=== PATIENT | male | born 2000 | race Caucasian/White ===

== ENCOUNTER 2020-11-20 10:06 | Inpatient (IN) | payer BC ==
[~2020-11-20 10:06] MED LIST: Iopamidol-370 76% 500 ML 1 ML ONE
[2020-11-20] MEDS ORDERED: Cefepime 2 GM VIAL ONE (11:00)
[2020-11-20] MEDS ORDERED: Morphine 4 MG/ML VIAL ONE ×3 (11:00→18:23)
[2020-11-20] MEDS ORDERED: Ketorolac Tromethamine 30 MG/ML VIAL ONE (11:00)
[2020-11-20] MEDS ORDERED: Ondansetron PF 4 MG/2 ML Vial ONE (11:00)
[2020-11-20] MEDS ORDERED: Acetaminophen 500 MG TAB ONE (11:02)
[2020-11-20 11:17] LABS: #Lymphocytes 0.4 thou/uL (1.20-3.40); #Monocytes 0.6 thou/uL (0.11-0.59); #Neutrophils 9.4 thou/uL (1.40-6.50); %Basophils 0.1 % (0.0-1.0); %Eosinophils 0.1 % (0.0-10.0); %Monocytes 5.8 % (0.0-4.0); %Neutrophils 89.9 % (31.0-61.0); Hemoglobin 14.7 g/dL (14.0-18.0); Mean Corpuscular HGB CONC 35.2 g/dL (32.0-36.0); Mean Corpuscular Hemoglobin 32.9 pg (25.0-35.0); Mean Corpuscular Volume 93.4 fL (78.0-98.0); Mean Platelet Volume 7.3 fL (7.4-10.4); Platelet Count 197 thou/uL (130-400); RBC Distribution Width 11.2 % (11.5-14.5); Red Blood Cell (RBC) Count 4.48 mill/uL (4.00-5.20); White Blood Cell (WBC) Count 10.5 thou/uL (4.8-10.8)
[2020-11-20 11:39] LABS: ALT (SGPT) 10 U/L (8-55); AST (SGOT) 18 U/L (5-34); Albumin 4.3 g/dL (3.5-5.0); Alkaline Phosphatase 70 U/L (50-130); Anion Gap 13 mmol/L (10-20); BUN (Urea Nitrogen) 16 mg/dL (8.9-20.6); Bilirubin, Total 1.4 mg/dL (0.2-1.2); CK (CPK) 112 U/L (30-200); Calc. Creatinine Clearance 0 mL/min (70-130); Calcium 9.5 mg/dL (7.8-10.44); Carbon Dioxide 23 mmol/L (22-29); Chloride 104 mmol/L (98-107); Globulin 3.2 g/dL (2.4-3.5); Glucose 110 mg/dL (70-105); Lipase 24 U/L (8-78); Magnesium 1.4 mg/dL (1.7-2.2); Potassium 3.9 mmol/L (3.5-5.1); Protein, Total 7.5 g/dL (6.0-8.3); Sodium 136 mmol/L (136-145)
[2020-11-20 11:49] LABS: Bacteria/HPF None Seen HPF (None Seen); Bilirubin Negative (Negative); Blood, Urine Negative (Negative); Clarity Clear (Clear); Glucose, Urine (Dipstick) Normal (Negative); Ketone, Urine Negative (Negative); Leukocyte Negative Leu/uL (Negative); Nitrite Negative (Negative); Protein, Urine (Dipstick) 30 mg/dL (Neg-Trace); RBC/HPF 0-3 HPF (0-3); Specific Gravity, Urine 1.032 (1.002-1.036); Squamous Epithelial 0-3 HPF (0-3); Urobilinogen Normal mg/dL (Less than 2); WBC/HPF 0-3 HPF (0-3); pH, Urine 8.5 (5.0-9.0)
[2020-11-20] MEDS ORDERED: Vancomycin 1 GM/200 ML BAG ONE (13:16)
[2020-11-20] MEDS ORDERED: Magnesium 2 GM/50 ML BAG (IN WATER) ONE (15:05)
[2020-11-20] MEDS ORDERED: Ondansetron PF 4 MG/2 ML Vial IVP PRN (15:17)
[2020-11-20] MEDS ORDERED: Acetaminophen 325 MG TAB PO PRN (15:17)
[2020-11-20] MEDS ORDERED: Ondansetron ODT 4 MG TAB PO PRN (15:17)
[2020-11-20 15:22] LABS: SARS-CoV-2 NAA Rapid Test Not Detected (NotDetected)
[2020-11-20 20:27] VITALS: BMI 24.4
[2020-11-20] MEDS: Morphine 2 MG/ML VIAL SLOW IVP PRN (20:49)
[2020-11-20] MEDS: cefTRIAXone\\ROCEPHIN 1 GM in Sodium Chloride 0.9% 100 ML IVPB SCH (22:13)
[2020-11-20] MEDS: metroNIDAZOLE 500 MG in Premix Bag 1 BAG IVPB SCH (23:15)
[2020-11-21] MEDS: metroNIDAZOLE 500 MG in Premix Bag 1 BAG IVPB SCH ×3 (05:17→21:19)
[2020-11-21 05:26] LABS: #Lymphocytes 0.9 thou/uL (1.20-3.40); #Monocytes 0.5 thou/uL (0.11-0.59); #Neutrophils 4.3 thou/uL (1.40-6.50); %Basophils 0.5 % (0.0-1.0); %Eosinophils 0.7 % (0.0-10.0); %Lymphocytes 15.8 % (28.0-48.0); %Monocytes 8.4 % (0.0-4.0); %Neutrophils 74.7 % (31.0-61.0); Hemoglobin 12.5 g/dL (14.0-18.0); Mean Corpuscular HGB CONC 33.3 g/dL (32.0-36.0); Mean Corpuscular Hemoglobin 31.7 pg (25.0-35.0); Platelet Count 160 thou/uL (130-400); RBC Distribution Width 11.1 % (11.5-14.5); Red Blood Cell (RBC) Count 3.94 mill/uL (4.00-5.20); White Blood Cell (WBC) Count 5.8 thou/uL (4.8-10.8)
[2020-11-21 05:45] LABS: Anion Gap 7 mmol/L (10-20); BUN (Urea Nitrogen) 16 mg/dL (8.9-20.6); Calc. Creatinine Clearance 152 mL/min (70-130); Calcium 8.4 mg/dL (7.8-10.44); Carbon Dioxide 25 mmol/L (22-29); Chloride 106 mmol/L (98-107); Glucose 88 mg/dL (70-105); Potassium 3.8 mmol/L (3.5-5.1); Sodium 134 mmol/L (136-145)
[2020-11-21] MEDS ORDERED: Magnesium Sulfate 4 GM in Sodium Chloride 0.9% 250 ML 250 ML IVPB SCH (08:00)
[2020-11-21] MEDS: Morphine 2 MG/ML VIAL SLOW IVP PRN ×3 (08:32→22:37)
[2020-11-21] MEDS: Dicyclomine 10 MG CAP PO PRN ×2 (10:23→16:35)
[2020-11-21] MEDS ORDERED: GoLYTELY 4,000 ml Bottle PO SCH (18:15)
[2020-11-21] MEDS: cefTRIAXone\\ROCEPHIN 1 GM in Sodium Chloride 0.9% 100 ML IVPB SCH (21:19)
[2020-11-22] MEDS: metroNIDAZOLE 500 MG in Premix Bag 1 BAG IVPB SCH (05:20)
[2020-11-22 06:11] LABS: #Eosinphils 0.1 thou/uL (0.0-0.7); #Lymphocytes 1.4 thou/uL (1.20-3.40); #Monocytes 0.5 thou/uL (0.11-0.59); #Neutrophils 2.5 thou/uL (1.40-6.50); %Basophils 0.6 % (0.0-1.0); %Eosinophils 2.7 % (0.0-10.0); %Lymphocytes 31.8 % (28.0-48.0); %Monocytes 10.3 % (0.0-4.0); %Neutrophils 54.6 % (31.0-61.0); Hemoglobin 12.5 g/dL (14.0-18.0); Mean Corpuscular Hemoglobin 33.5 pg (25.0-35.0); Mean Corpuscular Volume 95.6 fL (78.0-98.0); Mean Platelet Volume 7.2 fL (7.4-10.4); Platelet Count 173 thou/uL (130-400); RBC Distribution Width 11.2 % (11.5-14.5); Red Blood Cell (RBC) Count 3.73 mill/uL (4.00-5.20); White Blood Cell (WBC) Count 4.5 thou/uL (4.8-10.8)
[2020-11-22 06:39] LABS: Anion Gap 10 mmol/L (10-20); BUN (Urea Nitrogen) 11 mg/dL (8.9-20.6); CRP (Inflammatory) 12.02 mg/dL (= or < 0.5); Calc. Creatinine Clearance 144 mL/min (70-130); Calcium 8.3 mg/dL (7.8-10.44); Carbon Dioxide 27 mmol/L (22-29); Chloride 107 mmol/L (98-107); Glucose 80 mg/dL (70-105); Potassium 3.9 mmol/L (3.5-5.1); Sodium 140 mmol/L (136-145)
[2020-11-22] MEDS ORDERED: PROPOFOL 200 MG/20 ML VIAL ONE (09:30)
[2020-11-22] MEDS ORDERED: Lidocaine 1% PF 5 ML VIAL ONE (09:30)
[2020-11-22] MEDS ORDERED: Meperidine HCl/PF 25 MG/ML VIAL SLOW IVP PRN (10:21)
[2020-11-22] MEDS ORDERED: Promethazine HCl 25 MG/ML VIAL IVPB PRN ×2 (10:21)
[2020-11-22] MEDS ORDERED: Promethazine HCl 25 MG/ML VIAL IM PRN ×2 (10:21)
[2020-11-22] MEDS ORDERED: Ondansetron HCl/PF 4 MG/2 ML Vial IVP PRN ×2 (10:21)
[2020-11-22] MEDS ORDERED: Ketorolac Tromethamine 30 MG/ML VIAL IVP PRN (10:21)
[2020-11-22] MEDS: Morphine 2 MG/ML VIAL SLOW IVP PRN (11:29)
[2020-11-22] MEDS ORDERED: Promethazine HCl 12.5 MG in Sodium Chloride 0.9% 50 ML IVPB PRN (12:53)
[2020-11-22] MEDS ORDERED: HYDROcodone/Acetaminophen 5/325 mg Tablet PO PRN (12:53)
[2020-11-22] MEDS ORDERED: Hyoscyamine Sulfate SL 0.125 mg Tablet SL PRN (13:49)
[2020-11-22] MEDS: Hyoscyamine Sulfate SL 0.125 mg Tablet SL PRN ×2 (13:54→17:42)
[2020-11-22 16:09] VITALS: BP 104/59; TEMP 98.3
[2020-11-22] MEDS: Dicyclomine 10 MG CAP PO SCH ×2 (17:08→17:41)
== END 2020-11-22 18:00 | disposition home or self-care (01) | DRG 871 ==
LOC: ERS 10:06 → ERHOLD 12:42 → SJJU 19:57
PROVIDERS: ADMIT Internal Medicine; ATTEND Family Medicine
PROC: 0DBG8ZX Excision of Left Large Intestine, Via Natural or Artificial Opening Endoscopic, Diagnostic (ICD-10-PCS; principal; 2020-11-22)
PROC: 0DB78ZX Excision of Stomach, Pylorus, Via Natural or Artificial Opening Endoscopic, Diagnostic (ICD-10-PCS; 2020-11-22)
PROC: 0DBC8ZX Excision of Ileocecal Valve, Via Natural or Artificial Opening Endoscopic, Diagnostic (ICD-10-PCS; 2020-11-22)
DX: A41.9 Sepsis, unspecified organism (principal); K55.039 Acute (reversible) ischemia of large intestine, extent unspecified; Z20.822 Contact with and (suspected) exposure to COVID-19; K29.60 Other gastritis without bleeding; F17.210 Nicotine dependence, cigarettes, uncomplicated; K26.9 Duodenal ulcer, unspecified as acute or chronic, without hemorrhage or perforation; Z79.899 Other long term (current) drug therapy
CPT/HCPCS: 0240U; 36415; 74177; 80048; 80053; 81003; 81015; 82274; 82550; 83605; 83630; 83690; 83735; 85025; 85652; 86140; 87040; 87086; 87427; 87449; 88305; 96365; 96367; 96375; 96376; J0692; J0696; J1885; J2270; J2405; J2704; J3370; J3475; J3490; J7050; Q9967